=== PATIENT | female | born 1990 | race Two or more races ===

== ENCOUNTER 2022-08-15 15:41 | Emergency (ER) | payer OTHER ==
[~2022-08-15] VITALS: Ht 162.6 cm; Wt 140.0 kg
[2022-08-15 16:14] VITALS: BP 126/60
[2022-08-15 18:15] LABS: Basophils # (auto) 0 10 ^3/uL (0-0.2); Basophils % (auto) 0.4 % (0.0-2.0); Eosinophils # (auto) 0.1 10 ^3/uL (0-0.8); Eosinophils % (auto) 1.2 % (0.0-7.0); Hematocrit 41.7 % (36.0-46.0); Hemoglobin 13.8 g/dL (12.2-16.2); Lymphocytes # (auto) 3.3 10 ^3/uL (0.4-5.4); Lymphocytes % (auto) 31.7 % (10.0-50.0); Mean Corpuscular Hemoglobin 27.3 pg (28.0-32.0); Mean Corpuscular Hgb Conc. 33.2 g/dL (32.0-36.0); Mean Corpuscular Volume 82.3 fL (80.0-100.0); Monocytes # (auto) 0.5 10 ^3/uL (0-1.3); Neutrophils # (auto) 6.4 10 ^3/uL (1.6-8.6); Neutrophils % (auto) 61.7 % (37.0-80.0); Red Blood Cells 5.07 10^6/uL (4.0-5.20); Red Cell Distribution Width 14.9 % (11.8-14.3); White Blood Cell 10.3 10^3/uL (4.4-10.8)
[2022-08-15 18:29] LABS: Alanine Aminotransferase 43 U/L (13-56); Albumin 3.5 g/dL (3.4-5.0); Anion Gap 9 (5-15); Aspartate Aminotransferase 39 U/L (15-37); BUN/Creatinine Ratio 18.2; Blood Urea Nitrogen 12 mg/dL (7-18); Calcium 8.7 mg/dL (8.5-10.1); Carbon Dioxide 21 mmol/L (21-32); Chloride 110 mmol/L (98-107); GFR African American 134 mL/min; GFR Non-African American 111 mL/min; Glucose 83 mg/dL (74-106); Potassium 4.7 mmol/L (3.5-5.1); Sodium 140 mmol/L (136-145)
[2022-08-15 18:32] LABS: Alkaline Phosphatase 98 U/L (45-117); Bilirubin, Total 0.5 mg/dL (0.2-1.0); Total Protein 7.6 g/dL (6.4-8.2)
[2022-08-15] MEDS ORDERED: ACET-1079 PO (20:13)
[2022-08-15 20:29] LABS: INR 0.97 (0.9-1.15); Partial Thromboplastin Time 25.4 sec (24.6-33.4)
== END 2022-08-15 20:58 | disposition home or self-care (01) ==
LOC: ER 15:41 → EEVIPCON 15:41 → ER 20:58
DX: M79.604 Pain in right leg (principal)
CPT/HCPCS: 36415; 71046; 80053; 85025; 85610; 85730; 93971